=== PATIENT | female | born 1985 | race Caucasian/White ===

== ENCOUNTER → 2016-07-14 | Outpatient (CLI) | payer BC ==
[~2016-07-14] MED LIST: ESTR0.3T PO; PREN-83; PRLSR20 PO; PROG100C6 INJ; ZNTT/150 PO
== END | disposition home or self-care (01) ==
LOC: C.PAPS 16:50
PROVIDERS: ATTEND Obstetrics & Gynecology
DX: Z12.4 Encounter for screening for malignant neoplasm of cervix (principal)

== ENCOUNTER → 2016-07-14 | Outpatient (CLI) | payer BC ==
[2016-07-14 16:46] LABS: BASO % 0.2 %; BASO ABS # 0.02 K/uL (0-0.2); COMPLETE YES; EOS % 1.9 %; HEMATOCRIT 39.9 % (37-47); IG% 0.2 %; LYMPH % 19.1 %; LYMPH ABS # 2.25 K/uL (1.2-3.4); MEAN CELL VOLUME 85.6 fL (80-100); MEAN CORPUSCULAR HEMOGLOBIN 30.3 pg (25-34); MEAN CORPUSCULAR HGB CONC 35.3 g/dl (32-36); MEAN PLATELET VOLUME 10.5 fL (7.4-10.4); NEUT % 70.6 %; PLATELET COUNT 311 K/uL (130-400); RED BLOOD COUNT 4.66 M/uL (4.2-5.4); WHITE BLOOD COUNT 11.81 K/uL (4.8-10.8)
== END | disposition home or self-care (01) ==
LOC: C.LAB1850 15:04
PROVIDERS: ATTEND Obstetrics & Gynecology
DX: O09.00 Supervision of pregnancy with history of infertility, unspecified trimester (principal)

== ENCOUNTER → 2016-07-14 | Outpatient (CLI) | payer BC ==
[2016-07-14 18:43] LABS: URINE APPEARANCE CLEAR (CLEAR); URINE BILIRUBIN NEG (NEG); URINE COLOR YELLOW; URINE NITRITE NEG (NEG); URINE PH 6.5 (4.5-7.5); UROBILINOGEN NEG (NEG)
[2016-07-14 18:45] LABS: MANUAL MICROSCOPIC REQUIRED? NO; REVIEW REQ? NO
[2016-07-17 02:49] LABS: CHLAMYDIA TRACH RNA*** NOT DETECTED (NOT DETECTED); GC (NEIS GONORRHOEAE)RNA** NOT DETECTED (NOT DETECTED)
== END | disposition home or self-care (01) ==
LOC: C.LABSPEC 17:45
PROVIDERS: ATTEND Obstetrics & Gynecology
DX: O09.00 Supervision of pregnancy with history of infertility, unspecified trimester (principal)

== ENCOUNTER → 2016-09-01 | Outpatient (CLI) | payer BC ==
[2016-09-01 17:33] LABS: GTGD 50 Grams
== END | disposition home or self-care (01) ==
LOC: C.LAB1850 16:00
PROVIDERS: ATTEND Obstetrics & Gynecology
DX: O09.12 Supervision of pregnancy with history of ectopic pregnancy, second trimester (principal)

== ENCOUNTER → 2016-09-09 | Outpatient (CLI) | payer BC | END | disposition home or self-care (01) | LOC: C.LAB1850 07:06 | PROVIDERS: ATTEND Physician Assistant | DX: O28.9 Unspecified abnormal findings on antenatal screening of mother (principal) ==

== ENCOUNTER → 2016-11-25 | Outpatient (CLI) | payer BC ==
[2016-11-25 11:47] LABS: URINE APPEARANCE CLEAR (CLEAR); URINE BILIRUBIN NEG (NEG); URINE COLOR YELLOW; URINE EPITHELIAL CELL AUTO >30 /lpf (0-5); URINE NITRITE NEG (NEG); UROBILINOGEN NEG (NEG)
[2016-11-25 11:48] LABS: MANUAL MICROSCOPIC REQUIRED? NO; REVIEW REQ? NO
== END | disposition home or self-care (01) ==
LOC: C.LABSPEC 11:16
PROVIDERS: ATTEND Obstetrics & Gynecology
DX: O09.13 Supervision of pregnancy with history of ectopic pregnancy, third trimester (principal)

== ENCOUNTER → 2016-11-30 | Outpatient (CLI) | payer BC ==
[2016-11-30 10:34] LABS: HEMATOCRIT 39.2 % (37-47)
== END | disposition home or self-care (01) ==
LOC: C.LAB1850 08:31
PROVIDERS: ATTEND Obstetrics & Gynecology
DX: O09.13 Supervision of pregnancy with history of ectopic pregnancy, third trimester (principal)

== ENCOUNTER → 2017-01-20 | Outpatient (CLI) | payer BC | END | disposition home or self-care (01) | LOC: C.LABSPEC 13:47 | PROVIDERS: ATTEND Obstetrics & Gynecology | DX: O09.813 Supervision of pregnancy resulting from assisted reproductive technology, third trimester (principal) ==

== ENCOUNTER 2017-02-06 08:05 | Inpatient (IN) | payer BC ==
[~2017-02-06] VITALS: Ht 170.2 cm; Wt 99.0 kg
[~2017-02-06 08:05] MED LIST changes: -PREN-83; -ZNTT/150 PO
[2017-02-06] MEDS ORDERED: LACTATED RINGER'S 1000ML 1,000 ML IV SCH (08:55)
[2017-02-06] MEDS ORDERED: LACTATED RINGER'S 1000ML 1,000 ML IV PRN (08:55)
[2017-02-06] MEDS ORDERED: PENICILLIN G POTASSIUM IV 6 MU in DEXTROSE 5% 250ML 250 ML IV ONE (09:00)
[2017-02-06] MEDS ORDERED: PENICILLIN G POTASSIUM IV 3 MU in DEXTROSE 5% 100ML 100 ML IV PRN (09:00)
[2017-02-06 09:31] LABS: MEAN CELL VOLUME 90.7 fL (80-100); MEAN CORPUSCULAR HEMOGLOBIN 30.4 pg (25-34); MEAN CORPUSCULAR HGB CONC 33.5 g/dl (32-36); MEAN PLATELET VOLUME 9.8 fL (7.4-10.4); PLATELET COUNT 208 K/uL (130-400); RED BLOOD COUNT 4.41 M/uL (4.2-5.4); WHITE BLOOD COUNT 9.62 K/uL (4.8-10.8)
[2017-02-06] MEDS ORDERED: PREN-83 (10:30)
[2017-02-06] MEDS ORDERED: ZNTT/150 PO (10:30)
[2017-02-06 10:31] VITALS: Ht 170.2 cm; Wt 99.0 kg
[2017-02-06] MEDS ORDERED: LACTATED RINGER'S 1000ML 500 ML IV PRN ×2 (11:05→16:20)
[2017-02-06] MEDS ORDERED: OXYTOCIN 30 UNITS/500ML NSS IV PRN ×2 (11:15→19:45)
[2017-02-06] MEDS ORDERED: EpHEDrine SULFATE INJ 50 MG/ML AMP ONE (15:22)
[2017-02-06] MEDS ORDERED: FENTANYL 2MCG/ML ROPIV 1.25MG/ML 100ML BAG EPI ONE (15:22)
[2017-02-06] MEDS ORDERED: BUPIVACAINE 0.25% 30 ML VIAL ONE (15:22)
[2017-02-06] MEDS ORDERED: FENTANYL CITRATE INJ 50 MCG/1 ML 2 ML VIAL ONE (15:23)
[2017-02-06] MEDS ORDERED: NALOXONE HCL INJ 1 MG in SODIUM CHLORIDE 0.9% 1000ML 1,000 ML IV PRN (16:20)
[2017-02-06] MEDS ORDERED: EpHEDrine SULFATE INJ 50 MG/ML AMP IV PRN (16:30)
[2017-02-06] MEDS ORDERED: NALBUPHINE HCL INJ 10 MG/ML AMP IV PRN (16:30)
[2017-02-06] MEDS ORDERED: ONDANSETRON INJ 2 MG/ML 2 ML VIAL IV PRN (16:30)
[2017-02-06] MEDS ORDERED: FENTANYL 2MCG/ML ROPIV 1.25MG/ML 100ML BAG EPI PRN (16:30)
[2017-02-06] MEDS ORDERED: DiphenhydrAMINE HCL 50 MG/ML VIAL IV PRN (16:30)
[2017-02-06] MEDS ORDERED: NALOXONE HCL INJ 0.4 MG/1 ML VIAL/CARP IV PRN (16:30)
[2017-02-06] MEDS ORDERED: METHYLERGONOVINE MALEATE 0.2 MG/ML AMP ONE (19:02)
[2017-02-06] MEDS ORDERED: HYDROCORTISONE ACETATE 25 MG SUPP PR PRN (19:45)
[2017-02-06] MEDS ORDERED: OXYCODONE/ACETAMINOPHEN 5-325 TAB PO PRN (19:45)
[2017-02-06] MEDS ORDERED: ACETAMINOPHEN 325 MG TAB PO PRN (19:45)
[2017-02-06] MEDS ORDERED: SUPERCREAM 0.870 % 15GM JAR EXT PRN (19:45)
[2017-02-06] MEDS ORDERED: LANOLIN OINT EXT PRN ×2 (19:45)
[2017-02-06] MEDS ORDERED: BENZOCAINE 20% AER SPR 82.5 GM CAN EXT PRN (19:45)
--- NOTE | 2017-02-06 20:22 | Anesthesia Procedure Note ---
Anesthesia Epidural Removal Nt Date & Time Feb 06, 2017 at 20:22 Notes Mental Status: alert / awake / arousable, participated in evaluation Nausea / Vomiting: adequately controlled Pain: adequately controlled Airway Patency, RR, SpO2: stable & adequate BP & HR: stable & adequate Hydration State: stable & adequate Neuraxial Anesthesia: was administered Anesthetic Complications: no major complications apparent, pt satisfied with anesthetic care Epidural: removed without complications, with tip intact
[2017-02-06] MEDS: IBUPROFEN 600 MG TAB PO PRN (21:53)
[2017-02-06] MEDS: DOCUSATE SODIUM 100 MG CAP PO SCH (22:04)
[2017-02-06 23:00] VITALS: BP 120/73; PULSE 94; TEMP 36.8; O2SAT 97
--- NOTE | 2017-02-06 23:57 | DELIVERY SUMMARY ---
DATE OF OPERATION: 02/06/2017 PREDELIVERY DIAGNOSES: 1. A 31-year-old G2, P0-0-1-0 at 39 weeks 2 days, maxed induction of labor. 2. Advanced cervical dilation. 3. conception by in vitro fertilization. POSTDELIVERY DIAGNOSES: Same. ESTIMATED BLOOD LOSS: 400 mL. FINDINGS: Viable female , Apgars 9 and 9, weight pending. Please see nursery records. PROCEDURE: Spontaneous vaginal delivery with episiotomy and repair of third degree perineal laceration. DESCRIPTION OF DELIVERY: The patient progressed to complete with epidural anesthesia. She then began to push. She then vaginally delivered from a cephalic presentation a viable . While pushing, heart rate dropped to the 60s and there was a large amount of tissue dystocia at the perineum. This was beginning to tear, however due to heart tones in the 60s, midline episiotomy was performed. The patient then delivered from a cephalic presentation a viable with a compound arm. No nuchal cord was noted. The head delivered, followed by the anterior and then the posterior shoulder, followed by the body. Baby was placed on mother's abdomen and a spontaneous cry was heard. The cord was doubly clamped and cut. Cord blood for private banking was obtained in a sterile fashion. The placenta was then delivered spontaneously intact with a 3-vessel cord. Pitocin was given. The uterus became firm. Bladder was emptied to achieve better hemostasis. There was a continued trickle of blood from the uterus, therefore IM Methergine was given. The uterus and vagina were swept of all clots and debris. The uterus was again noted to be firm. The cervix, vagina and perineum were inspected for lacerations and a third degree perineal laceration was noted. The anal sphincter muscle was not entirely lacerated, just the capsule of the muscle was and required re-approximation. Rectal exam revealed no lacerations in the rectum and a mostly intact, at least 50% anal sphincter. The anal sphincter muscle capsule was re-approximated using [id number] stitches of 3-0 chromic. Next, the resulting second degree laceration was repaired in standard fashion with 3-0 Vicryl in a running stitch. Excellent hemostasis was observed. The patient and the baby tolerated the delivery well. Sponge, instrument, and needle counts were correct x2 at the conclusion of the delivery. I attest to the content of the Intraoperative Record and any orders documented therein. Any exception s are noted below.
[2017-02-07] MEDS ORDERED: CALCIUM CARBONATE 500 MG CHEWABLE PO PRN (01:30)
[2017-02-07] MEDS ORDERED: RANITIDINE HCL 150 MG TAB PO ONE (01:30)
[2017-02-07 04:10] VITALS: BP 116/78; PULSE 81; TEMP 36.7; O2SAT 98
[2017-02-07 06:51] LABS: HEMATOCRIT 31.5 % (37-47)
--- NOTE | 2017-02-07 07:02 | Progress Note ---
Subjective Feb 07, 2017. Subjective conversation w/ patient, physical exam, chart review, lab review Ambulation: ambulating normally Voiding: no voiding problems Passing Gas: Yes Diet Tolerance: Regular Diet Lochia: Moderate Feeding Type: Breast Feeding Pain: 2 Comment: pt seen and examined at bedside, denies acute overnight events Review of Systems Constitutional: No fever, No chills Respiratory: No cough, No shortness of breath Cardiac: No chest pain, No palpitations Female : No dysuria denies headaches Objective Vital Signs Date Time Temp Pulse Resp B/P (MAP) Pulse Ox O2 Delivery O2 Flow Rate FiO2 02/07/17 04:10 36.7 81 18 116/78 (91) 98 Room Air 02/06/17 23:00 Room Air 02/06/17 23:00 36.8 94 18 120/73 (89) 97 Room Air Physical Exam General Appearance: WELL-APPEARING, WD/WN, NO APPARENT DISTRESS Respiratory/Chest: lungs clear, normal breath sounds, no respiratory distress Cardiovascular: regular rate, rhythm, no edema, no gallop, no JVD Abdomen: normal bowel sounds, soft Fundus: Firm, Tender (appropriately tender), Relation to Umbilicus (1 below u) Extremities: non-tender, normal inspection, no pedal edema, no calf tenderness Laboratory Results Last 24 Hours Test 02/06/17 09:16 02/07/17 06:24 White Blood Count 9.62 K/uL Red Blood Count 4.41 M/uL Hemoglobin 13.4 g/dL 11.1 g/dL Hematocrit 40.0 % 31.5 % Mean Corpuscular Volume 90.7 fL Mean Corpuscular Hemoglobin 30.4 pg Mean Corpuscular Hemoglobin Concent 33.5 g/dl RDW Standard Deviation 45.1 fL RDW Coefficient of Variation 13.7 % Platelet Count 208 K/uL Mean Platelet Volume 9.8 fL Assessment and Plan Problem List Medical Problems: (1) Threatened Status: Acute Post- Day#: 1 Continue Routine Care: Pt is doing well clinically. - VS reviewed and WNL. - Encourage ambulation, monitor and control pain with Motrin PRN, continue regular diet, monitor lochia - Continue support Resident Physician Supervision Note: I was present with Dr. Navarro during the history and exam. I discussed the case with the resident and agree with the findings and plan as documented in the note. Any exceptions or clarifications are listed here: PPD#1 doing well. Continue routine care. Documented By: Maria Del Rosario Salamanca
[2017-02-07] MEDS: DOCUSATE SODIUM 100 MG CAP PO SCH ×2 (07:43→19:58)
[2017-02-07 07:50] VITALS: BP 109/69; PULSE 74; TEMP 36.6; O2SAT 98
[2017-02-07 12:00] VITALS: BP 115/69; PULSE 75; TEMP 36.5; O2SAT 98
[2017-02-07] MEDS: IBUPROFEN 600 MG TAB PO PRN (12:10)
[2017-02-07 15:20] VITALS: BP 110/73; PULSE 72; TEMP 36.6; O2SAT 98
[2017-02-07] MEDS ORDERED: BISACODYL 5 MG TABEC PO SCH (20:00)
[2017-02-07 23:10] VITALS: BP 115/68; PULSE 84; TEMP 36.6; O2SAT 97
[2017-02-08] MEDS: IBUPROFEN 600 MG TAB PO PRN ×2 (04:58→16:42)
--- NOTE | 2017-02-08 05:03 | Discharge Instructions ---
Discharge Instructions Date of Service Feb 08, 2017. Admission Reason for Admission: Induction Discharge Discharge Diagnosis / Problem: Induction Discharge Goals Goal(s): Routine recovery after delivery Medications Continue Dispensed Medications: supercream, dermaplast, tucks, lansinoh Activity Recommendations Activity Limitations: per Instructions/Follow-up section . Instructions / Follow-Up Instructions / Follow-Up ACTIVITY RECOMMENDATIONS: * Gradual return to full activity over the next 2-3 weeks. * No lifting - nothing heavier than baby over the next 2-3 weeks. * Do not engage in vigorous exercise, sexual activity or sports until cleared by your physician. * Do not drive or operate any motorized equipment until cleared by your physician. * You may shower/bathe daily. MEDICATIONS: For discomfort or pain, you may use Acetaminophen (Tylenol), Ibuprofen (Advil), or Naproxen (Aleve) following the package directions. For constipation you may use Colace following the package directions. BREAST CARE: If you are not breast feeding: * Wear a supportive bra 24 hours a day for one to two weeks. * Avoid stimulating your breasts and nipples as much as possible during the first few weeks after delivery. * When taking a shower, have the warm water hit your back, not breasts. * When your breasts feel full, apply ice packs. Usually three to four times a day helps ease the discomfort. * Take a mild pain medication (Tylenol / Motrin) when you are uncomfortable. If breast feeding: * Use breast milk to lubricate nipples. Lansinoh cream may be used for sore nipples. You do not need to remove cream prior to breast feeding. If using a different brand of cream, check the label for directions regarding removal of cream prior to nursing. * Wear a supportive bra. * If having problems with breasts or breast feeding, call a business consultant or your health care provider. EPISIOTOMY CARE: After delivery, if you have an episiotomy (stitches), the following steps will ease discomfort and aid healing. * For the first 24 hours after delivery, place ice packs next to your episiotomy to help reduce swelling. * After the first 24 hour-period, sitz baths, either portable or in the tub, are suggested. A shower with a shower arm sprayed over the episiotomy may be comforting. * Maria Del Carmen care should be done after each voiding and bowel movement. Squirt warm water from a plastic bottle over the perineum (region of the body between the anus and urinary opening) and pat dry. * Use Dermoplast to ease discomfort. Shake container. Gray directly over the episiotomy. Place a Tucks on a clean sanitary pad next to your episiotomy. SPECIAL CARE INSTRUCTIONS: When you are discharged from the hospital, it is important for you to follow the instructions listed below: * During the first week at home, you should be able to care for yourself and your baby. In addition, the usual light household activities are encouraged. * Limit your activities to the way you feel. Do not try to clean the house or move furniture. Be sensible. * If you actively engage in sports and have done so up until the time of your delivery, you may resume these activities as soon as you feel able. This may take up to one month or even longer. Use good judgment. * Continue to take your vitamins for at least six weeks after the of your baby. * Your diet need not be limited unless you were on a special diet before your delivery. Breast-feeding mothers need around 2500 calories per day and at least 64-80 ounces of fluid per day (8 to 10 glasses). * You should eat foods from the four major food groups. Crash diets or fad diets are to be avoided. Eating lean meats, fresh fruits and vegetables, low-fat dairy products, high fiber foods and a regular exercise program, will help you get back to your pre- weight without putting your health at risk. * Constipation is sometimes a problem after delivery. Take a mild laxative as needed. If breast feeding, Milk of Magnesia is acceptable to use. You may use a suppository or Fleets enema if no episiotomy. * A daily shower or tub bath is suggested. Be sure to thoroughly and gently dry the perineum. * A bloody vaginal discharge will usually continue until around four weeks post . A small amount of bleeding may continue for as long as six weeks. Vaginal discharge changes from the bright red bleeding after delivery to pink then brownish and finally yellowish-pink before becoming white and disappearing. * Bleeding may increase with activity. Your first period may come in 4-8 weeks. If you are breast feeding, your period may be delayed even longer. * [place] (sex) can begin whenever both you and your partner feel comfortable and do not have any form of genital infection. It is recommended that you wait at least six weeks for internal and external healing to occur. If you have questions, please talk to your health care practitioner. A condom should be used to prevent infection and . * Foreplay, gentle intercourse and lubrication is very important the first several times to prevent pain. A water-based lubricant such as K-Y jelly or Astroglide may be used. * If you have RH negative blood and your baby is RH positive, you will receive RHOGAM by injection prior to discharge. The nurse will give you a card to keep with you that has the date and place that you received RHOGAM after delivery. * During your care, you had a Rubella screen done to check for the presence of rubella antibodies in your blood. If your test was negative, you will receive a Rubella vaccine prior to discharge. This vaccine may cause a fever, soreness at the injection site and flu-like symptoms. If these symptoms persist, notify your health care practitioner. is not advised for one month after a Rubella vaccine. * Verbalizes understanding of car seat law as reviewed with patient nursing. * Car Seat hand-out given and reviewed with patient by nursing. * Shaken baby information reviewed with patient by nursing. Call you doctor if: * Heavy bleeding (saturating several pads an hour) or passing clots the size of your fist. * A fever >101 degrees F (38.3 degrees C) on two occasions four hours apart and /or chills. * Unusual pain in the pelvic or vaginal areas. * "Baby Blues" lasting longer than two weeks. If you have any questions or concerns, call your health care practitioner at . FOLLOW UP VISIT: * Please call the office at to schedule a 6 week examination. It is important you keep this appointment. It is important for you to make arrangements for either yearly or twice yearly check-ups thereafter. Current Hospital Diet Patient's current hospital diet: Regular OB Diet Discharge Diet Recommended Diet: Regular Diet Pending Studies Studies pending at discharge: no Medical Emergencies . Who to Call and When: Medical Emergencies: If at any time you feel your situation is an emergency, please call 911 immediately. . Non-Emergent Contact Non-Emergency issues call your: Primary Care Provider . . "Provider Documentation" section prepared by Gina Navarro. . VTE Core Measure Inpt VTE Proph given/why not?: SCD's
--- NOTE | 2017-02-08 06:53 | Progress Note ---
Subjective Feb 08, 2017. Subjective conversation w/ patient, physical exam Ambulation: ambulating normally Voiding: no voiding problems Passing Gas: Yes Diet Tolerance: Regular Diet Lochia: Moderate Feeding Type: Breast Feeding Comment: having some breastfeediing difficulties, has not seen the clinical nursing professor yet. Review of Systems Constitutional: No fever, No chills, No sweats, No weight loss, No weakness, No fatigue, No problem reported Breast: No see HPI, No breast lump, No change in shape, No nipple discharge, No breast pain, No problem reported Female : No see HPI, No dysuria, No urinary frequency, No hematuria, No incontinence, No abnormal vaginal bleeding, No vaginal discharge, No problem reported Objective Vital Signs Date Time Temp Pulse Resp B/P (MAP) Pulse Ox O2 Delivery O2 Flow Rate FiO2 02/07/17 23:10 36.6 84 18 115/68 (84) 97 Room Air 02/07/17 23:10 97 Room Air 02/07/17 15:20 36.6 72 18 110/73 (85) 98 Room Air 02/07/17 15:20 98 Room Air 02/07/17 12:00 36.5 75 18 115/69 (84) 98 Room Air 02/07/17 07:50 98 Room Air 02/07/17 07:50 36.6 74 18 109/69 (82) 98 Room Air Physical Exam General Appearance: WELL-APPEARING, NO APPARENT DISTRESS Abdomen: non tender, soft Fundus: Firm, Non-Tender, Relation to Umbilicus Extremities: no calf tenderness Assessment and Plan Problem List Medical Problems: (1) Threatened Status: Acute Post- Day#: 2 Continue Routine Care: stable course will see marine consultant prior to discharge. discharge to home follow up in 6weeks
[2017-02-08] MEDS: DOCUSATE SODIUM 100 MG CAP PO SCH ×2 (08:26→20:00)
[2017-02-08 08:30] VITALS: BP 114/71; PULSE 74; TEMP 36.6; O2SAT 98
[2017-02-08 16:30] VITALS: BP 115/74; PULSE 71; TEMP 36.7; O2SAT 98
[2017-02-08 19:50] VITALS: BP_DIAS 74; PULSE 86; TEMP 36.6
== END 2017-02-08 20:00 | disposition home or self-care (01) | DRG 775 ==
LOC: C.OPB 08:05 → C.LD 08:07 → C.OPB 08:59 → C.OBG 22:46
PROVIDERS: ADMIT Obstetrics & Gynecology; ATTEND Obstetrics & Gynecology
PROC: 10907ZC Drainage of Amniotic Fluid, Therapeutic from Products of Conception, Via Natural or Artificial Opening (ICD-10-PCS; principal; 2017-02-06)
PROC: 0W8NXZZ Division of Female Perineum, External Approach (ICD-10-PCS; principal; 2017-02-06)
PROC: 0DQR0ZZ Repair Anal Sphincter, Open Approach (ICD-10-PCS; principal; 2017-02-06)
PROC: 3E033VJ Introduction of Other Hormone into Peripheral Vein, Percutaneous Approach (ICD-10-PCS; principal; 2017-02-06)
PROC: 10E0XZZ Delivery of Products of Conception, External Approach (ICD-10-PCS; principal; 2017-02-06)
DX: O99.824 Streptococcus B carrier state complicating childbirth (principal); Z37.0 Single live birth; O99.62 Diseases of the digestive system complicating childbirth; K21.9 Gastro-esophageal reflux disease without esophagitis; Z79.899 Other long term (current) drug therapy; O76 Abnormality in fetal heart rate and rhythm complicating labor and delivery; O32.2XX0 Maternal care for transverse and oblique lie, not applicable or unspecified; O26.893 Other specified pregnancy related conditions, third trimester; O70.20 Third degree perineal laceration during delivery, unspecified; Z3A.39 39 weeks gestation of pregnancy